=== PATIENT | female | born 1995 | race American Indian/Alaskan Native ===

== ENCOUNTER 2018-05-28 10:40 | Outpatient (CLI) | payer MEDICAID ==
--- NOTE | 2018-05-28 08:26 | Emergency Department Report ---
ED Chest Pain HPI - General Chief Complaint: Chest Pain Stated Complaint: CHEST PAIN FEELING FAINT VOMITTING Time Seen by Provider: 05/28/18 07:17 Source: patient Mode of arrival: Ambulatory Limitations: No Limitations - History of Present Illness Initial Comments: Amy is a very pleasant healthy 23-year-old female with who presents with chest and abdominal pain this morning. She has chest burning with 2 episodes of vomiting. She has diffuse abdominal pain most predominantly in the right lower quadrant. Has not had indigestion during this . Had normal food last night. [facility]. Last visit was Thursday. Recently diagnosed with gestational diabetes. Now she feels faint and weak. No vaginal bleeding. No loss of fluid. ED 08/15/2018 EGA 28 weeks 5 days Complaint: chest pain -: Gradual, This morning Onset: during rest Severity scale (0 -10): 5 Quality: other (burning) Improves With: nothing Worsens With: exertion - Related Data Allergies Allergy/AdvReac Type Severity Reaction Status Date / Time No Known Allergies Allergy Unverified 05/28/18 05:50 Heart Score - HEART Score History: Slightly suspicious EKG: Normal Age: < 45 Risk factors: No known risk factors Troponin: < normal limit HEART Score: 0 ED Review of Systems ROS: Stated complaint: CHEST PAIN FEELING FAINT VOMITTING Other details as noted in HPI Comment: All other systems reviewed and negative Constitutional: denies: fever, malaise Respiratory: denies: cough, shortness of breath Cardiovascular: chest pain ED Past Medical Hx - Past Medical History Previous Medical History?: No - Surgical History Past Surgical History?: No - Social History Smoking Status: Never Smoker Substance Use Type: None ED Physical Exam - General Limitations: No Limitations General appearance: alert, in no apparent distress - Head Head exam: Present: atraumatic, normocephalic - Eye Eye exam: Present: normal appearance - ENT ENT exam: Present: mucous membranes moist - Neck Neck exam: Present: normal inspection, full ROM - Respiratory Respiratory exam: Present: normal lung sounds bilaterally. Absent: respiratory distress, wheezes, rales, rhonchi - Cardiovascular Cardiovascular Exam: Present: regular rate, normal rhythm, normal heart sounds. Absent: systolic murmur, diastolic murmur, rubs, gallop - GI/Abdominal GI/Abdominal exam: Present: soft, distended (gravid), normal bowel sounds. Absent: tenderness, guarding, rebound - Extremities Exam Extremities exam: Present: normal inspection - Back Exam Back exam: Present: normal inspection - Neurological Exam Neurological exam: Present: alert, oriented X3 - Psychiatric Psychiatric exam: Present: normal affect, normal mood - Skin Skin exam: Present: warm, dry, intact, normal color. Absent: rash ED Course Vital Signs 05/28/18 05/28/18 05/28/18 05:45 06:49 07:00 Temperature 99.3 F Pulse Rate 84 99 H 100 H Respiratory 16 14 23 Rate Blood Pressure 123/64 115/65 Blood Pressure [Left] O2 Sat by Pulse 100 97 100 Oximetry 05/28/18 05/28/18 05/28/18 07:15 07:30 07:45 Temperature Pulse Rate 104 H 94 H 104 H Respiratory 18 23 19 Rate Blood Pressure 115/65 116/62 116/62 Blood Pressure [Left] O2 Sat by Pulse 98 99 99 Oximetry 05/28/18 05/28/18 05/28/18 07:48 08:00 08:15 Temperature Pulse Rate 102 H 112 H 108 H Respiratory 16 20 24 Rate Blood Pressure 113/61 113/61 Blood Pressure 116/62 [Left] O2 Sat by Pulse 100 100 99 Oximetry 05/28/18 05/28/18 05/28/18 08:30 08:45 09:00 Temperature Pulse Rate 108 H 114 H 107 H Respiratory 21 13 26 H Rate Blood Pressure 121/64 121/64 120/61 Blood Pressure [Left] O2 Sat by Pulse 100 100 100 Oximetry 05/28/18 05/28/18 05/28/18 09:15 09:30 09:45 Temperature Pulse Rate 120 H 110 H 119 H Respiratory 21 18 15 Rate Blood Pressure 120/61 127/63 127/63 Blood Pressure [Left] O2 Sat by Pulse 99 99 99 Oximetry ED Medical Decision Making - EKG Data EKG shows normal: sinus rhythm, axis, intervals, QRS complexes, ST-T waves Rate: tachycardia - EKG Data Interpretation: normal EKG (with the exception of tachycardia 100 bpm) - Medical Decision Making Ms. Hunt presents with abdominal pain chest pain since 3:45 AM. She did have sinus tachycardia noted on EKG. However with history of abdominal pain will need evaluation by labor and delivery to ensure that health of the baby. I do not suspect dissection or pulmonary embolism at this time. However she will need further evaluation if symptoms persist after obstetrical evaluation. She is transferred to labor and delivery. She is currently discharged from the emergency department. Our nursing staff will transport her to labor and delivery. Critical care attestation.: If time is entered above; I have spent that time in minutes in the direct care of this critically ill patient, excluding procedure time. ED Disposition Clinical Impression: Abdominal pain affecting , Chest pain Disposition: TO HOME OR SELFCARE Is pt being admited?: No Does the pt Need Aspirin: No Condition: Stable Instructions: Chest Pain (ED) Referrals: [facility] [Other] - 3-5 Days
[2018-05-28 10:00] LABS: Basophils % (Auto) 0.1 % (0.0-1.8); Eosinophils % (Auto) 0.1 % (0.0-4.3); Hematocrit 37.6 % (30.3-42.9); Hemoglobin 13.2 gm/dl (10.1-14.3); Lymphocytes # (Auto) 0.3 K/mm3 (1.2-5.4); Lymphocytes % (Auto) 3.3 % (13.4-35.0); Mean Corpuscular HGB Conc 35 % (30-34); Mean Corpuscular Volume 93 fl (79-97); Monocytes # (Auto) 0.5 K/mm3 (0.0-0.8); Monocytes % (Auto) 6.8 % (0.0-7.3); Platelet Count 248 K/mm3 (140-440); Red Blood Count 4.05 M/mm3 (3.65-5.03); Red Cell Distribution Width 12.6 % (13.2-15.2)
[2018-05-28 10:22] LABS: Alanine Aminotransferase 7 units/L (7-56); Albumin 3.6 g/dL (3.9-5); BUN/Creatinine Ratio 12; Blood Urea Nitrogen 7 mg/dL (7-17); Calcium 8.8 mg/dL (8.4-10.2); Hemolysis Index 3
[2018-05-28 10:25] LABS: Bilirubin,Direct < 0.2 mg/dL (0-0.2)
[~2018-05-28 10:40] MED LIST: NACL 0.9% 1000 ML 1,000 ML IV ONE; NACL 0.9% 1000 ML 1,000 ML ONE; PEPCID PO ONE; TYLENOL PO ONE; ZOFRAN IV ONE; ZOFRAN ODT PO ONE; ZOFRAN ONE
[2018-05-28 10:46] VITALS: BP 130/66
[2018-05-28] MEDS ORDERED: BRETHINE SUB-Q ONE (11:47)
[2018-05-28] MEDS ORDERED: LACTATED RINGERS 500 ML IV SCH (12:00)
== END 2018-05-28 12:35 | disposition home or self-care (01) ==
LOC: TRG 10:40 → EDSTATUS 10:42 → TRG 12:35
PROVIDERS: ATTEND Obstetrics & Gynecology
DX: O26.893 Other specified pregnancy related conditions, third trimester (principal); R07.9 Chest pain, unspecified; R10.84 Generalized abdominal pain; R55 Syncope and collapse; O21.2 Late vomiting of pregnancy; O24.419 Gestational diabetes mellitus in pregnancy, unspecified control; Z3A.28 28 weeks gestation of pregnancy
CPT/HCPCS: 36415; 59025; 80048; 80076; 85025; 93005; 93010; 96361; 96372; 96374; J2405; J3105; J7030; J7120; 96360; 99283; Q0162

== ENCOUNTER 2018-07-29 10:16 | Outpatient (CLI) | payer MEDICAID ==
[2018-07-29 10:43] VITALS: BP 127/78
--- NOTE | 2018-07-29 12:59 | Ultrasound Report ---
ULTRASOUND BIOPHYSICAL PROFILE: History: Decreased movement Technique: Transabdominal ultrasound with Doppler interrogation. 2 - breathing movements 2 - movements 2 - posture and tone 2 - Qualitative amniotic fluid volume 8 - TOTAL SCORE OF POSSIBLE 8 Heart Rate (bpm) 149
--- NOTE | 2018-07-29 12:59 | Ultrasound Report ---
ULTRASOUND OB LIMITED History: Decreased movement Technique: Transabdominal ultrasound with Doppler interrogation. Gestation: Single Position: Cephalic Amniotic Fluid: Normal DARRIAN = 15.9 cm Heart Rate: 156 BPM
== END 2018-07-29 13:50 | disposition home or self-care (01) ==
LOC: TRG 10:16
PROVIDERS: ATTEND Obstetrics & Gynecology
DX: O47.03 False labor before 37 completed weeks of gestation, third trimester (principal); Z3A.36 36 weeks gestation of pregnancy
CPT/HCPCS: 76815; 76819

== ENCOUNTER 2018-08-05 14:28 | Inpatient (IN) | payer MEDICAID ==
[2018-08-05 18:39] LABS: Hematocrit 36.9 % (30.3-42.9); Mean Corpuscular HGB Conc 35 % (30-34); Mean Corpuscular Volume 93 fl (79-97); Platelet Count 208 K/mm3 (140-440); Red Blood Count 3.98 M/mm3 (3.65-5.03); Red Cell Distribution Width 14.3 % (13.2-15.2)
[2018-08-05 19:00] LABS: Alanine Aminotransferase 7 units/L (7-56); Uric Acid 5.8 mg/dL (3.5-7.6)
[2018-08-05] MEDS ORDERED: BRETHINE IVP PRN (20:54)
[2018-08-05] MEDS ORDERED: BRETHINE SUB-Q PRN (20:54)
[2018-08-05] MEDS ORDERED: MINERAL OIL PO PRN (20:54)
[2018-08-05] MEDS ORDERED: SUBLIMAZE IV PRN (20:54)
[2018-08-05] MEDS ORDERED: XYLOCAINE 2% INFILTRATI ONE (20:54)
[2018-08-05] MEDS ORDERED: CERVIDIL VG ONE (20:54)
[2018-08-05] MEDS ORDERED: STADOL IV PRN (20:54)
[2018-08-05] MEDS ORDERED: PITOCin/NS 20 UNIT/1000ML DRIP 20 UNITS/1,000 ML BAG IV SCH (21:00)
[2018-08-05] MEDS ORDERED: LACTATED RINGERS 1,000 ML IV SCH (21:00)
[2018-08-05 22:19] LABS: Bilirubin,Urine NEG (Negative); Blood,Urine NEG (Negative); Color,Urine Yellow (Yellow); Mucus,Urine FEW /HPF; Protein,Urine <15 mg/dL mg/dL (Negative); Urobilinogen,Urine < 2.0 mg/dL (<2.0)
[2018-08-06] MEDS ORDERED: AMBIEN PO PRN (00:07)
--- NOTE | 2018-08-06 08:34 | History and Physical Report ---
History of Present Illness Date of examination: 08/06/18 Date of admission: 08/06/18 00:17 Chief complaint: sent from [facility] for induction of labor History of present illness: Pt is a 23 year old -[place] female DE 08/15/28 at 38w5d who presents from [facility] for induction secondary to gestational hypertension. She has no obstetric complaints. She received cervidil overnight. She has had care at [facility] since 13 wks complicated by polyhydramnios, gestational diabetes, UTI treated with Macrobid. She is GBS negative. Past History Past Medical History: no pertinent history Past Surgical History: other (wisdom teeth extraction ) Family/Genetic History: diabetes, hypertension Social history: no significant social history - Obstetrical History Expected Date of Delivery: 08/12/18 Actual Gestation: 39 Week(s) 1 Day(s) : 2 Para: 0 Hx # Term Pregnancies: 0 Number of Pregnancies: 0 Spontaneous Abortions: 0 Induced : 1 Number of Living Children: 0 Medications and Allergies Allergies Allergy/AdvReac Type Severity Reaction Status Date / Time No Known Allergies Allergy Verified 08/05/18 18:10 Home Medications Medication Instructions Recorded Confirmed Last Taken Type Vit-Fe Fumar-FA [ 1 tab PO QDAY 08/06/18 08/06/18 08/05/18 History Vitamin] Active Meds: Active Medications Butorphanol Tartrate (Stadol) 2 mg IV Q2H PRN PRN Reason: Pain , Severe (7-10) Ephedrine Sulfate (Ephedrine Sulfate) 10 mg IV Q2M PRN PRN Reason: Hypotension Fentanyl (Sublimaze) 100 mcg IV Q2H PRN PRN Reason: Labor Pain Oxytocin/Sodium Chloride (Pitocin/Ns 20 Unit/1000ml Drip) 20 units in 1,000 mls @ 125 mls/hr IV DIRECT THOMAS Lactated Ringer's (Lactated Ringers) 1,000 mls @ 125 mls/hr IV DIRECT THOMAS Mineral Oil (Mineral Oil) 30 ml PO QHS PRN PRN Reason: Constipation Terbutaline Sulfate (Brethine) 0.25 mg SUB-Q ONCE PRN PRN Reason: Hyperstimulation/Hypertonicity Terbutaline Sulfate (Brethine) 0.25 mg IVP ONCE PRN PRN Reason: Hyperstimulation/Hypertonicity Zolpidem Tartrate (Ambien) 10 mg PO QHS PRN PRN Reason: Insomnia Last Admin: 08/06/18 02:29 Dose: 10 mg Documented by: Review of Systems All systems: negative - Vital Signs Vital signs: Vital Signs Pulse BP 85 130/78 08/05/18 15:53 08/05/18 15:53 Temp Pulse Resp BP Pulse Ox 98.9 F 70 16 146/91 91 08/06/18 07:35 08/06/18 07:35 08/06/18 07:35 08/06/18 07:35 08/06/18 07:12 - Physical Exam Breasts: Positive: deferred Cardiovascular: Regular rate Lungs: Positive: Clear to auscultation Abdomen: Positive: soft (gravid ) Uterus: Positive: enlarged (gravid) Extremities: Positive: normal - Obstetrical FHR: auscultation normal Uterine Contraction Monitor Mode: External Uterine Contraction Pattern: Irregular Uterine Tone Measurement Phase: Resting Uterine Contraction Intensity: Mild Results Result Diagrams: 08/05/18 18:16 08/05/18 18:16 Abnormal lab results 08/05/18 08/05/18 08/05/18 Range/Units 18:16 18:16 21:39 MCH 33 H (28-32) pg MCHC 35 H (30-34) % POC Glucose (70-105) Lactate Dehydrogenase 216 H (91-180) units/L U Epithel Cells (Auto) 28.0 H (0-13.0) /HPF 08/05/18 Range/Units 22:01 MCH (28-32) pg MCHC (30-34) % POC Glucose 67 L (70-105) Lactate Dehydrogenase (91-180) units/L U Epithel Cells (Auto) (0-13.0) /HPF All other labs normal. Assessment and Plan A: IUP at 38w5d Gestational HTN GBS Negative P: Admit to labor and delivery Proceed with induction of labor Closely monitor clinical status
[2018-08-06] MEDS: CYTOTEC VG PRN (23:25)
[2018-08-07] MEDS: CYTOTEC VG PRN (04:01)
--- NOTE | 2018-08-07 07:21 | Progress Note ---
Assessment and Plan - Patient Problems (1) Gestational hypertension Current Visit: Yes Status: Acute Plan to address problem: continue plan of induction Subjective - Subjective Date of service: 08/07/18 Interval history: 23y/o @ 38+6 weeks undegoing induction for gestational hypertension. The patient has received cervidil and cytotec without cervical change. Cat I tracing. Continue induction. Will likely transition to pitocin, Patient reports: no new complaints Objective - Vital Signs Vital Signs: Vital Signs - 12hr 08/06/18 08/06/18 08/06/18 20:21 22:31 22:33 Temperature 98.5 F Pulse Rate 78 69 71 Respiratory 16 Rate Blood Pressure 147/81 179/98 160/94 Blood Pressure 147/81 [Left] O2 Sat by Pulse 100 Oximetry 08/06/18 08/06/18 08/06/18 22:36 22:41 22:46 Temperature Pulse Rate 89 69 88 Respiratory Rate Blood Pressure Blood Pressure [Left] O2 Sat by Pulse 100 100 99 Oximetry 08/06/18 08/06/18 08/06/18 22:51 23:09 23:21 Temperature Pulse Rate 75 78 91 H Respiratory Rate Blood Pressure Blood Pressure [Left] O2 Sat by Pulse 98 99 100 Oximetry 08/06/18 08/06/18 08/06/18 23:22 23:26 23:31 Temperature Pulse Rate 96 H 75 76 Respiratory Rate Blood Pressure 133/83 Blood Pressure [Left] O2 Sat by Pulse 99 100 Oximetry 08/06/18 08/06/18 08/06/18 23:36 23:41 23:46 Temperature Pulse Rate 75 74 72 Respiratory Rate Blood Pressure Blood Pressure [Left] O2 Sat by Pulse 98 99 98 Oximetry 08/06/18 08/06/18 08/07/18 23:51 23:56 00:01 Temperature Pulse Rate 73 83 94 H Respiratory Rate Blood Pressure Blood Pressure [Left] O2 Sat by Pulse 99 97 97 Oximetry 08/07/18 08/07/18 08/07/18 00:06 00:11 00:16 Temperature Pulse Rate 77 83 78 Respiratory Rate Blood Pressure Blood Pressure [Left] O2 Sat by Pulse 96 97 97 Oximetry 08/07/18 08/07/18 08/07/18 00:21 00:26 00:31 Temperature Pulse Rate 73 78 79 Respiratory Rate Blood Pressure Blood Pressure [Left] O2 Sat by Pulse 97 98 97 Oximetry 08/07/18 08/07/18 08/07/18 00:36 00:41 00:46 Temperature Pulse Rate 96 H 92 H 81 Respiratory Rate Blood Pressure Blood Pressure [Left] O2 Sat by Pulse 98 97 98 Oximetry 08/07/18 08/07/18 08/07/18 00:51 00:56 01:01 Temperature Pulse Rate 93 H 75 84 Respiratory Rate Blood Pressure Blood Pressure [Left] O2 Sat by Pulse 97 96 97 Oximetry 08/07/18 08/07/18 08/07/18 01:06 01:11 01:16 Temperature Pulse Rate 78 66 70 Respiratory Rate Blood Pressure Blood Pressure [Left] O2 Sat by Pulse 97 97 96 Oximetry 08/07/18 08/07/18 08/07/18 01:17 01:21 01:25 Temperature Pulse Rate 74 80 71 Respiratory Rate Blood Pressure Blood Pressure [Left] O2 Sat by Pulse 93 97 94 Oximetry 08/07/18 08/07/18 08/07/18 01:26 01:31 01:35 Temperature Pulse Rate 68 90 70 Respiratory Rate Blood Pressure Blood Pressure [Left] O2 Sat by Pulse 97 96 93 Oximetry 08/07/18 08/07/18 08/07/18 01:36 01:41 01:46 Temperature Pulse Rate 88 87 66 Respiratory Rate Blood Pressure Blood Pressure [Left] O2 Sat by Pulse 96 96 97 Oximetry 08/07/18 08/07/18 08/07/18 01:51 01:56 02:01 Temperature Pulse Rate 93 H 64 65 Respiratory Rate Blood Pressure Blood Pressure [Left] O2 Sat by Pulse 98 98 97 Oximetry 08/07/18 08/07/18 08/07/18 02:06 02:11 02:16 Temperature Pulse Rate 64 70 70 Respiratory Rate Blood Pressure Blood Pressure [Left] O2 Sat by Pulse 97 96 97 Oximetry 08/07/18 08/07/18 08/07/18 02:21 02:26 02:31 Temperature Pulse Rate 62 65 71 Respiratory Rate Blood Pressure Blood Pressure [Left] O2 Sat by Pulse 98 97 97 Oximetry 08/07/18 08/07/18 08/07/18 02:36 02:41 02:46 Temperature Pulse Rate 59 L 67 70 Respiratory Rate Blood Pressure Blood Pressure [Left] O2 Sat by Pulse 98 97 97 Oximetry 08/07/18 08/07/18 08/07/18 02:51 02:56 03:01 Temperature Pulse Rate 57 L 72 64 Respiratory Rate Blood Pressure Blood Pressure [Left] O2 Sat by Pulse 98 98 97 Oximetry 08/07/18 08/07/18 08/07/18 03:06 03:11 03:16 Temperature Pulse Rate 70 57 L 68 Respiratory Rate Blood Pressure Blood Pressure [Left] O2 Sat by Pulse 99 98 99 Oximetry 08/07/18 08/07/18 08/07/18 03:21 03:24 03:34 Temperature Pulse Rate 65 89 79 Respiratory Rate Blood Pressure Blood Pressure [Left] O2 Sat by Pulse 97 89 100 Oximetry 08/07/18 08/07/18 08/07/18 03:36 03:39 03:44 Temperature Pulse Rate 111 H 71 61 Respiratory Rate Blood Pressure Blood Pressure [Left] O2 Sat by Pulse 94 100 100 Oximetry 08/07/18 08/07/18 08/07/18 03:49 03:54 03:59 Temperature Pulse Rate 91 H 59 L 65 Respiratory Rate Blood Pressure Blood Pressure [Left] O2 Sat by Pulse 99 100 98 Oximetry 08/07/18 08/07/18 08/07/18 04:01 04:02 04:04 Temperature 98.6 F Pulse Rate 65 77 67 Respiratory 20 Rate Blood Pressure 186/105 139/87 Blood Pressure 138/87 [Left] O2 Sat by Pulse 98 Oximetry 08/07/18 08/07/18 08/07/18 04:09 04:14 04:19 Temperature Pulse Rate 62 70 58 L Respiratory Rate Blood Pressure Blood Pressure [Left] O2 Sat by Pulse 98 98 99 Oximetry 08/07/18 08/07/18 08/07/18 04:24 04:29 04:34 Temperature Pulse Rate 61 65 63 Respiratory Rate Blood Pressure Blood Pressure [Left] O2 Sat by Pulse 98 97 98 Oximetry 08/07/18 08/07/18 08/07/18 04:39 04:44 04:49 Temperature Pulse Rate 58 L 64 57 L Respiratory Rate Blood Pressure Blood Pressure [Left] O2 Sat by Pulse 97 97 98 Oximetry 08/07/18 08/07/18 08/07/18 04:54 04:59 05:04 Temperature Pulse Rate 59 L 71 62 Respiratory Rate Blood Pressure Blood Pressure [Left] O2 Sat by Pulse 97 96 97 Oximetry 08/07/18 08/07/18 08/07/18 05:09 05:14 05:19 Temperature Pulse Rate 80 91 H 78 Respiratory Rate Blood Pressure Blood Pressure [Left] O2 Sat by Pulse 98 98 98 Oximetry 08/07/18 08/07/18 08/07/18 05:23 05:24 05:29 Temperature Pulse Rate 54 L 60 62 Respiratory Rate Blood Pressure 142/75 Blood Pressure [Left] O2 Sat by Pulse 98 98 Oximetry 08/07/18 08/07/18 08/07/18 05:34 05:39 05:44 Temperature Pulse Rate 58 L 69 63 Respiratory Rate Blood Pressure Blood Pressure [Left] O2 Sat by Pulse 99 98 98 Oximetry 08/07/18 08/07/18 08/07/18 05:49 05:54 05:59 Temperature Pulse Rate 61 59 L 60 Respiratory Rate Blood Pressure Blood Pressure [Left] O2 Sat by Pulse 98 99 98 Oximetry 08/07/18 08/07/18 08/07/18 06:04 06:09 06:14 Temperature Pulse Rate 60 66 58 L Respiratory Rate Blood Pressure Blood Pressure [Left] O2 Sat by Pulse 99 98 97 Oximetry 08/07/18 08/07/18 08/07/18 06:19 06:24 06:29 Temperature Pulse Rate 65 63 65 Respiratory Rate Blood Pressure Blood Pressure [Left] O2 Sat by Pulse 97 97 98 Oximetry 08/07/18 08/07/18 08/07/18 06:32 06:37 06:40 Temperature Pulse Rate 79 90 90 Respiratory Rate Blood Pressure Blood Pressure [Left] O2 Sat by Pulse 90 75 L 76 L Oximetry 08/07/18 08/07/18 08/07/18 06:42 06:47 06:52 Temperature Pulse Rate 65 61 58 L Respiratory Rate Blood Pressure Blood Pressure [Left] O2 Sat by Pulse 98 98 99 Oximetry 08/07/18 08/07/18 08/07/18 06:57 07:02 07:07 Temperature Pulse Rate 74 59 L 60 Respiratory Rate Blood Pressure Blood Pressure [Left] O2 Sat by Pulse 92 99 99 Oximetry 08/07/18 07:09 Temperature Pulse Rate 75 Respiratory Rate Blood Pressure Blood Pressure [Left] O2 Sat by Pulse 93 Oximetry - Labs Labs: Abnormal Labs 08/05/18 08/05/18 08/05/18 18:16 18:16 21:39 MCH 33 H MCHC 35 H POC Glucose Lactate Dehydrogenase 216 H U Epithel Cells (Auto) 28.0 H 08/05/18 08/06/18 22:01 15:15 MCH MCHC POC Glucose 67 L 137 H Lactate Dehydrogenase U Epithel Cells (Auto) Laboratory Results - last 24 hr 08/05/18 08/06/18 08/06/18 21:39 12:07 15:15 POC Glucose 80 137 H RPR Nonreactive 08/07/18 07:19 POC Glucose 84 RPR
[2018-08-07] MEDS ORDERED: PITOCin/NS 30 UNIT/500ML 30 UNITS/500 ML BAG IV SCH (08:00)
[2018-08-07] MEDS ORDERED: APRESOLINE IV PRN (15:10)
[2018-08-07 20:58] LABS: Hematocrit 38.6 % (30.3-42.9); Hemoglobin 13.8 gm/dl (10.1-14.3); Mean Corpuscular HGB Conc 36 % (30-34); Mean Corpuscular Volume 93 fl (79-97); Platelet Count 228 K/mm3 (140-440); Red Blood Count 4.17 M/mm3 (3.65-5.03); Red Cell Distribution Width 14.2 % (13.2-15.2)
[2018-08-07] MEDS ORDERED: ZOFRAN IV PRN (21:04)
[2018-08-07] MEDS ORDERED: NARCAN 0.4 MG/1 ML IV PRN ×2 (21:04→21:11)
[2018-08-07] MEDS ORDERED: PHENERGAN PR PRN (21:04)
[2018-08-07] MEDS ORDERED: PHENERGAN PO PRN (21:04)
[2018-08-07] MEDS ORDERED: BENADRYL IV PRN (21:04)
[2018-08-07] MEDS ORDERED: DILAUDID IV PRN ×2 (21:04)
--- NOTE | 2018-08-07 21:06 | Anesthesia Consultation ---
Anesthesia Consult and Med Hx Date of service: 08/07/18 - Airway Anesthetic Teeth Evaluation: Good ROM Head & Neck: Adequate Mental/Hyoid Distance: Adequate Mallampati Class: Class II Intubation Access Assessment: Good - Pulmonary Exam CTA: Yes - Cardiac Exam Cardiac Exam: RRR - Pre-Operative Health Status ASA Pre-Surgery Classification: ASA2 Proposed Anesthetic Plan: Spinal - Pulmonary Hx Smoking: No Hx Asthma: No Hx Respiratory Symptoms: No SOB: No COPD: No Home Oxygen Therapy: No Hx Pneumonia: No Hx Sleep Apnea: No - Cardiovascular System Hx Hypertension: No Hx Coronary Artery Disease: No Hx Heart Attack/AMI: No Hx Angina: No Hx Percutaneous Transluminal Coronary Angioplasty (PTCA): No Hx Cardia Arrhythmia: No Hx Pacemaker: No Hx Internal Defibrillator: No Hx Valvular Heart Disease: No Hx Heart Murmur: No Hx Peripheral Vascular Disease: No - Central Nervous System Hx Seizures: No Hx Psychiatric Problems: No - Gastrointestinal Hx Ulcer: No Hx Gastroesophageal Reflux Disease: Yes - Endocrine Hx Renal Disease: No Hx End Stage Renal Disease: No Hx Cirrhosis: No Hx Liver Disease: No Hx Insulin Dependent Diabetes: No Hx Non-Insulin Dependent Diabetes: No Hx Thyroid Disease: No Hx Hypothyroidism: No Hx Hyperthyroidism: No - Hematic Hx Anemia: No Hx Sickle Cell Disease: No - Other Systems Hx Alcohol Use: No Hx Substance Use: No Hx Cancer: No Hx Obesity: No
--- NOTE | 2018-08-07 21:07 | Post Anesthesia Evaluation ---
- Post Anesthesia Evaluation Patient Participated: Yes Airway Patent: Yes Stable Respiratory Function: Yes Nausea/Vomiting: No Temp > 96.8F: Yes Pain Manageable: Yes Adequeate Hydration: Yes Anesthesia Complications: No Block Receding Appropriately: Yes Patient on Ventilator: No
--- NOTE | 2018-08-07 21:07 | Anesthesia Day of Surgery ---
Anesthesia Day of Surgery - Day of Surgery Patient Examined: Yes Patient H&P Reviewed: Yes Patient is NPO: Yes Beta Blockers: No Cardiac Clearance: No Pulmonary Clearance: No Herbert's Test: N/A
--- NOTE | 2018-08-07 21:09 | Event Note ---
Date: 08/07/18 Patient has undergone induction with cervidil, cytotec and pitocin without cervical change. tracing remains reassuring. Options discussed with patient who has elected to proceed with a primary delivery for failed induction.
--- NOTE | 2018-08-07 21:10 | Procedure Note ---
OB Delivery Note - Delivery Date of Delivery: 08/07/18 Surgeon: CARLOS TESFAYE Estimated blood loss: other (800ml) - Section Preop diagnosis: other (failed induction) Postop diagnosis: same section procedure: section, primary low transverse Disposition: PACU Complications: none - A at 1 minute: 8 at 5 minutes: 9 Infant Gender: Male (weight 7lbs 1oz)
[2018-08-07] MEDS ORDERED: MORPHINE IV PRN (21:11)
[2018-08-07] MEDS ORDERED: TORADOL IV PRN (21:11)
[2018-08-07] MEDS ORDERED: LANSINOH TP PRN (21:11)
[2018-08-07] MEDS ORDERED: TYLENOL PO PRN (21:11)
[2018-08-07] MEDS ORDERED: TUCKS PAD TP PRN (21:11)
[2018-08-07] MEDS ORDERED: REGLAN ONE (21:15)
[2018-08-07] MEDS ORDERED: BICITRA ONE (21:15)
--- NOTE | 2018-08-07 21:15 | Operative Report ---
Operative Report Operative Report: Date of surgery: 08/07/2018 Preoperative diagnosis: at 39+0 weeks; gestational hypertension; failed induction Postoperative diagnosis: Same as above Procedure: Primary low transverse delivery Surgeon: Yanely Rizo M.D. Anesthesia: Regional Estimated blood loss: 800 mL IV fluids 900 mL Urine output 100 mL Findings: Liveborn male infant with Apgars of 8 and 9 weight 7 lbs. 1 oz. Indications: 23-year-old 38+6 weeks who was admitted for induction of labor secondary to gestational hypertension. The patient received multiple modalities for induction of labor without cervical change. Procedure: The patient was taken to the operating room and given regional anesthesia without complication. She was prepped and draped in a normal sterile fashion. A Pfannenstiel skin incision was made down to layer the fascia which was nicked in the midline extended laterally with the Bovie cautery. The superior aspect of the rectus fascia was grasped with Gay clamps x2 and the rectus muscles off sharply. This was done in inferior fashion as well. The rectus muscle midline and peritoneum entered bluntly. An Johnny retractor was then inserted. A bladder blade was placed. The vesicouterine peritoneum was then entered sharply with Metzenbaum scissors. A bladder flap was created digitally. A low transverse uterine incision was then made and extended digitally. There was clear fluid upon entry into the uterine cavity. Experience difficulty liver and the head through the incision. A Kiwi vacuum was applied however suction was an adequate secondary to the blood in the field. The skin incision was then extended with the scalpel. The head was delivered through the incision with fundal pressure. The cord was clamped and cut x2 and was passed off to pediatrics. The placenta was then manually extracted. The uterus was then exteriorized and cleared of clots and debris. The uterine incision was then closed in a running locked fashion with 0 Vicryl additional imbricating stitch was applied for 2 layer closure. The serosa was then reapproximated with 3-0 Vicryl. The posterior cul-de-sac was then copiously irrigated. The uterus was replaced back into the abdomen and pelvis were the gutters were then irrigated. The Johnny retractor was then removed. The peritoneum was then reapproximated with 3-0 Vicryl incorporating the rectus muscle. The fascia was then closed with 0 Vicryl in a running fashion. The skin was then reapproximated with 3-0 Monocryl on a Ovi needle subcuticular fashion. Steri-Strips to place across the incision and a Crede procedures performed at the end of the surgery. A pressure dressing was applied to the incision. The surgery productive of a liveborn male with Apgars of 8 and 9 weight 7 lbs. 1 oz. The patient was taken to the recovery room in stable condition. All sponge laps and needle counts correct x2.
[2018-08-07] MEDS ORDERED: PEPCID IV ONE (21:16)
[2018-08-07] MEDS ORDERED: WATER FOR IRRIG STERILE IR ONE (21:50)
[2018-08-07] MEDS ORDERED: NACL 0.9% IR ONE (21:50)
[2018-08-07] MEDS ORDERED: PEPCID IV SCH (22:00)
[2018-08-07] MEDS ORDERED: PITOCin/NS 20 UNIT/1000ML DRIP 20 UNITS/1,000 ML BAG IV SCH (22:00)
[2018-08-07] MEDS ORDERED: D5LR 1,000 ML IV SCH (22:00)
[2018-08-07] MEDS ORDERED: SODIUM CHLORIDE FLUSH SYRINGE 10 ML IV NR ×2 (22:00)
[2018-08-08] MEDS ORDERED: BICITRA PO ONE (01:41)
[2018-08-08] MEDS ORDERED: REGLAN IV NR (02:00)
[2018-08-08] MEDS: PERCOCET 5/325 PO PRN ×2 (04:41→11:14)
[2018-08-08] MEDS: IBUPROFEN PO PRN ×3 (04:42→22:51)
[2018-08-08 09:45] LABS: Hematocrit 32.8 % (30.3-42.9); Hemoglobin 11.5 gm/dl (10.1-14.3)
--- NOTE | 2018-08-08 11:29 | Progress Note ---
Assessment and Plan - Patient Problems (1) Gestational hypertension Current Visit: Yes Status: Acute Plan to address problem: will initiate anti-hypertensive routine postop care Subjective - Subjective Date of service: 08/08/18 Interval history: POD#1 s/p primary for failed induction. The patient is having labile blood pressures. Tolerating diet. Bliss has not been removed yet. Patient reports: appetite normal, flatus : doing well Objective - Vital Signs Latest vital signs: Vital Signs Temp Pulse Resp BP BP Pulse Ox 08/08/18 07:52 98.6 F 100 H 16 152/81 97 08/08/18 00:30 98.4 F 84 16 155/88 08/08/18 00:00 99.0 F 80 27 H 136/70 98 08/07/18 23:50 76 21 129/69 97 08/07/18 23:35 95 H 22 148/80 95 08/07/18 23:20 101 H 25 H 135/84 97 08/07/18 23:05 78 21 122/65 97 08/07/18 23:00 105 H 18 137/62 99 08/07/18 22:54 98.1 F 111 H 18 142/74 97 08/07/18 21:22 96 H 180/94 08/07/18 21:19 78 99 08/07/18 21:14 74 99 08/07/18 21:10 80 139/103 08/07/18 21:09 79 99 08/07/18 21:08 98.8 F 82 18 139/108 99 08/07/18 21:04 74 99 08/07/18 20:59 80 99 08/07/18 20:54 69 99 08/07/18 20:49 70 99 08/07/18 20:44 77 99 08/07/18 20:39 77 99 08/07/18 20:34 72 99 08/07/18 20:29 64 99 08/07/18 20:24 68 100 08/07/18 20:21 83 161/96 08/07/18 20:19 90 99 08/07/18 20:14 82 100 08/07/18 20:09 95 H 100 08/07/18 19:52 76 189/100 08/07/18 19:47 71 99 08/07/18 19:42 75 99 08/07/18 19:37 73 100 08/07/18 19:32 70 100 08/07/18 19:27 77 100 08/07/18 19:22 85 99 08/07/18 19:21 77 155/91 08/07/18 19:17 87 98 08/07/18 19:12 89 99 08/07/18 19:07 108 H 99 08/07/18 19:02 79 100 08/07/18 18:57 86 99 08/07/18 18:52 75 99 08/07/18 18:50 71 160/84 08/07/18 18:47 77 99 08/07/18 18:42 79 98 08/07/18 18:37 69 99 08/07/18 18:32 79 99 08/07/18 18:27 75 100 08/07/18 18:26 70 165/95 08/07/18 18:22 71 99 08/07/18 18:21 76 156/93 08/07/18 18:17 78 99 08/07/18 18:12 72 99 08/07/18 18:07 79 100 08/07/18 18:02 112 H 96 08/07/18 17:51 75 161/92 08/07/18 17:49 81 99 08/07/18 17:44 73 99 08/07/18 17:39 88 99 08/07/18 17:34 72 99 08/07/18 17:29 80 99 08/07/18 17:24 80 98 08/07/18 17:22 75 147/93 08/07/18 17:19 91 H 99 08/07/18 17:14 78 99 08/07/18 17:09 75 99 08/07/18 17:04 93 H 98 08/07/18 16:59 79 99 08/07/18 16:54 83 99 08/07/18 16:49 93 H 99 08/07/18 16:44 95 H 100 08/07/18 16:42 82 140/84 08/07/18 16:39 85 100 08/07/18 16:34 90 100 08/07/18 16:30 98.6 F 18 08/07/18 16:29 88 135/77 100 08/07/18 16:24 90 100 08/07/18 16:19 91 H 100 08/07/18 16:14 95 H 100 08/07/18 16:12 86 145/86 08/07/18 16:09 93 H 100 08/07/18 16:04 99 H 100 08/07/18 15:59 101 H 100 08/07/18 15:57 88 139/83 08/07/18 15:54 88 100 08/07/18 15:49 99 H 100 08/07/18 15:44 84 100 08/07/18 15:39 85 100 08/07/18 15:31 66 191/106 08/07/18 15:29 61 98 08/07/18 15:24 69 98 08/07/18 15:23 62 168/95 08/07/18 15:19 65 99 08/07/18 15:14 60 99 08/07/18 15:09 71 99 08/07/18 15:04 67 99 08/07/18 14:59 67 99 08/07/18 14:55 61 191/106 08/07/18 14:54 64 99 08/07/18 14:49 73 98 08/07/18 14:44 65 99 08/07/18 14:39 68 98 08/07/18 14:34 59 L 99 08/07/18 14:29 66 97 08/07/18 14:24 66 99 08/07/18 14:22 71 142/85 08/07/18 14:19 65 99 08/07/18 14:16 65 179/95 08/07/18 14:14 73 97 08/07/18 14:09 77 99 08/07/18 14:04 63 99 08/07/18 13:59 61 98 08/07/18 13:54 80 98 08/07/18 13:49 64 100 08/07/18 13:44 65 99 08/07/18 13:39 66 99 08/07/18 13:34 88 99 08/07/18 13:24 70 97 08/07/18 13:19 78 98 08/07/18 13:14 65 97 08/07/18 13:09 62 97 08/07/18 13:04 61 98 08/07/18 13:03 79 93 08/07/18 12:59 58 L 98 08/07/18 12:54 65 97 08/07/18 12:50 98.9 F 18 08/07/18 12:49 63 98 08/07/18 12:46 61 170/95 08/07/18 12:44 71 97 08/07/18 12:39 65 97 08/07/18 12:34 63 98 08/07/18 12:29 62 98 08/07/18 12:24 93 H 98 08/07/18 12:13 63 99 08/07/18 12:08 71 97 08/07/18 12:03 66 98 08/07/18 11:58 68 99 08/07/18 11:53 62 99 08/07/18 11:48 61 99 08/07/18 11:43 62 98 08/07/18 11:38 69 99 08/07/18 11:33 64 98 08/07/18 11:28 61 99 Intake and Output 08/07/18 08/08/18 08/08/18 22:59 06:59 14:59 Intake Total 1318.667 240 240 Output Total 200 200 Balance 1118.667 240 40 Intake: IV 1318.667 PITOCin/NS 30 UNIT/500ML 18.667 30 units In 500 ml @ 1 MILLIUNITS/MIN 1 mls/hr IV TITR THOMAS Rx#:[id number] Oral 240 240 Output: Urine 200 200 Uretheral (Bliss) 100 Void 200 Other: Total, Intake Amount 240 240 Total, Output Amount 200 Voiding Method Toilet # Voids 3 Void 3 # Bowel Movements 0 Estimated Blood Loss 800 - Exam Abdomen: Present: normal appearance Uterus: Present: normal, firm Incision: Present: dressed - Labs Labs: Abnormal lab results 08/07/18 08/07/18 Range/Units 20:50 21:10 MCH 33 H (28-32) pg MCHC 36 H (30-34) % POC Glucose 67 L (70-105)
[2018-08-08] MEDS: PROCARDIA XL PO SCH (12:17)
--- NOTE | 2018-08-09 08:01 | Discharge Summary ---
Providers - Providers Date of Admission: 08/06/18 00:17 Date of discharge: 08/09/18 Attending physician: DALIA CARRASQUILLO MD Primary care physician: RACHEL RIVERA Hospitalization Reason for admission: induction of labor, other (Gestational HTN ) Delivery: Procedure: section, primary low transverse Procedure details: Please see operative report. Incision: intact Other procedures: none complications: none Discharge diagnosis: IUP at term delivered baby: male Hospital course: The patient was admitted for induction of labor secondary to gestational hypertension at 30 weeks. Edgardo underwent a primary low transverse section which she tolerated well. Her postoperative course was uncomfortable. She met discharge criteria on postoperative day #2. She should follow up in 1 week for a blood pressure check. Condition at discharge: Stable Disposition: DC-01 TO HOME OR SELFCARE - Discharge Diagnoses (1) S/P section Status: Acute (2) Term of male Status: Acute (3) Gestational hypertension Status: Acute Qualifiers: Trimester: third trimester Qualified Code(s): O13.3 - Gestational [-induced] hypertension without significant proteinuria, third trimester Plan - Discharge Medications Prescriptions: Labetalol [Labetalol 200mg TAB] 200 mg PO BID #60 tablet Ibuprofen [Motrin 800 MG tab] 800 mg PO Q8HR PRN #30 tablet PRN Reason: Pain, Moderate (4-6) oxyCODONE /ACETAMINOPHEN [Percocet 5/325] 1 tab PO Q6HR PRN #40 tablet PRN Reason: Pain - Provider Discharge Summary Activity: routine, no sex for 6 weeks, no heavy lifting 4 weeks, no strenuous exercise Diet: routine Instructions: routine Additional instructions: [] Smoking cessation referral if applicable(refer to patient education folder for contact #) [] Refer to [facility] Booklet Call your doctor immediately for: * Fever > 100.5 * Heavy vaginal bleeding ( >1 pad per hour) * Severe persistent headache * Shortness of breath * Reddened, hot, painful area to leg or breast * Drainage or odor from incision. * Keep incision clean and dry at all times and follow doctor's instructions regarding bathing/showering - Follow up plan Follow up: RACHEL RIVERA MD [Primary Care Provider] - 7 Days (Please schedule an appt in 1 week for a blood pressure check. Please schedule your son's circumcision before he is one month old. )
--- NOTE | 2018-08-09 08:01 | Progress Note ---
Assessment and Plan A: POD#2 s/p primary section at term Pt requesting discharge home P: Routine postop care Discharge home with follow up in 2 wks Subjective - Subjective Date of service: 08/09/18 Principal diagnosis: POD#2 s/p primary at term Interval history: Pt without complaints. She is requesting hospital discharge. Plus flatus. no bowel movement.ambulating well. Voiding without difficulty. Decreasing lochia. Patient reports: appetite normal, voiding normally, pain well controlled, flatus, ambulating normally, no bowel movement : doing well Objective - Vital Signs Latest vital signs: Vital Signs Temp Pulse Resp BP Pulse Ox 08/08/18 23:52 98.5 F 99 H 20 140/91 98 08/08/18 22:51 18 08/08/18 17:21 98.9 F 95 H 20 149/94 98 08/08/18 12:18 98.2 F 86 20 157/91 97 Intake and Output 08/08/18 08/09/18 08/09/18 22:59 06:59 14:59 Intake Total 240 240 Output Total 350 Balance -110 240 Intake: Oral 240 240 Output: Urine 350 Void 350 Other: Total, Intake Amount 240 240 Total, Output Amount 350 # Voids Void 1 1 - Exam Breasts: Present: deferred Cardiovascular: Present: Regular rate Lungs: Present: Clear to auscultation Abdomen: Present: soft, normal bowel sounds Uterus: Present: fundal height below umbilicus Extremities: Present: edema (trace) Incision: Present: intact (with steristrips )
[2018-08-09] MEDS: MILK OF MAGNESIA PO SCH ×2 (08:12→18:57)
[2018-08-09] MEDS: PROCARDIA XL PO SCH (08:13)
[2018-08-09] MEDS: PERCOCET 5/325 PO PRN ×2 (08:13→19:04)
[2018-08-09] MEDS: IBUPROFEN PO PRN ×2 (13:10→19:02)
[2018-08-10] MEDS: MILK OF MAGNESIA PO SCH ×3 (00:39→11:19)
[2018-08-10] MEDS: PERCOCET 5/325 PO PRN (00:40)
[2018-08-10] MEDS: IBUPROFEN PO PRN ×2 (00:40→06:38)
[2018-08-10] MEDS: PROCARDIA XL PO SCH (11:19)
[2018-08-10 13:59] VITALS: BP 137/85
== END 2018-08-10 14:00 | disposition home or self-care (01) | DRG 766 ==
LOC: TRG 14:28 → LD 08-06 00:17 → OB 08-08 00:45
PROVIDERS: ADMIT Obstetrics & Gynecology; ATTEND Obstetrics & Gynecology
PROC: 10D00Z1 Extraction of Products of Conception, Low, Open Approach (ICD-10-PCS; principal; 2018-08-07)
PROC: 3E0P7VZ Introduction of Hormone into Female Reproductive, Via Natural or Artificial Opening (ICD-10-PCS; 2018-08-07)
PROC: 3E033VJ Introduction of Other Hormone into Peripheral Vein, Percutaneous Approach (ICD-10-PCS; 2018-08-07)
DX: O13.4 Gestational [pregnancy-induced] hypertension without significant proteinuria, complicating childbirth (principal); O61.9 Failed induction of labor, unspecified; O99.62 Diseases of the digestive system complicating childbirth; K21.9 Gastro-esophageal reflux disease without esophagitis; Z37.0 Single live birth; Z3A.38 38 weeks gestation of pregnancy
CPT/HCPCS: 36415; 59200; 81001; 82565; 82962; 83615; 84450; 84460; 84550; 85014; 85018; 85027; 86592; 86850; 86900; 86901; G0378; J0360; J1885; J2270; J2590; J2765; J7120

== ENCOUNTER 2021-03-08 11:14 | Emergency (ER) | payer SELFPAY ==
--- NOTE | 2021-03-08 12:14 | Emergency Department Report ---
Minor Respiratory - HPI Chief Complaint: Upper Respiratory Infection Stated Complaint: FLU LIKE SYMPTOMS Time Seen by Provider: 03/08/21 12:10 Duration: 1 Day Severity: mild Minor Respiratory: Yes Able to Tolerate Fluids, Yes Cough, Yes Fever, No Rhinorrhea, No Sore Throat, No Ear Pain, No Sick Contacts, No Hemoptysis, No Chest Pain, No Shortness of Breath Other History: 26-year-old -Swedish female presents to the emergency room complaining of chills headache body aches cough scratchy throat since yesterday. Patient is unvaccinated for Covid and has not recently been tested. She states she is able to drink. She has been taken [id number] TheraFlu cold and flu last dose was last night. Patient states she is been taking Tylenol last dose last night. She denies any chest pain but reports she gets short of breath just when she coughs. She denies any past medical history currently takes no meds on a daily basis and has no known drug allergies. ED Review of Systems ROS: Stated complaint: FLU LIKE SYMPTOMS Other details as noted in HPI Comment: All other systems reviewed and negative ED Past Medical Hx - Past Medical History Previous Medical History?: No Hx Hypertension: No Hx Heart Attack/AMI: No Hx Congestive Heart Failure: No Hx Diabetes: No Hx Deep Vein Thrombosis: No Hx Liver Disease: No Hx Renal Disease: No Hx Sickle Cell Disease: No Hx Seizures: No Hx Asthma: No Hx COPD: No Hx HIV: No - Surgical History Hx Pacemaker: No Hx Internal Defibrillator: No - Social History Smoking Status: Never Smoker - Medications Home Medications: Home Medications Medication Instructions Recorded Confirmed Last Taken Type Vit-Fe Fumar-FA [ 1 tab PO QDAY 08/06/18 08/06/18 08/05/18 History Vitamin] labetaloL [Labetalol 200mg TAB] 200 mg PO BID #60 tablet 08/09/18 Unknown Rx oxyCODONE /ACETAMINOPHEN [Percocet 1 tab PO Q6HR PRN #40 tablet 08/09/18 Unknown Rx 5/325] Ibuprofen [Motrin 800 MG tab] 800 mg PO Q8HR PRN #30 tablet 03/08/21 Unknown Rx Minor Respiratory Exam - Exam General: Vital signs noted. No distress. Alert and acting appropriately. HEENT: Yes Moist Mucous Membranes, No Pharyngeal Erythema, No Pharyngeal Exudates, No Rhinorrhea, No Conjuctival Injection, No Frontal Tenderness, No Maxillary Tenderness Ear: Neither TM Bulge, Neither TM Erythema, Neither EAC Pain, Neither EAC Discharge Neck: Yes Supple, No Adenopathy Lungs: Yes Good Air Exchange, No Wheezes, No Ronchi, No Stridor, No Cough, No Labored Respirations, No Retractions, No Use of Accessory Muscles, No Other Abnormal Lung Sounds Heart: Yes Regular, No Murmur Abdomen: Yes Normal Bowel Sounds, No Tenderness, No Peritoneal Signs Skin: No Rash, No Edema Neurologic: Alert and oriented, no deficits. Musculoskeletal: Unremarkable. ED Course Vital Signs 03/08/21 11:49 Temperature 102.5 F H Pulse Rate 121 H Respiratory 16 Rate Blood Pressure 124/69 O2 Sat by Pulse 100 Oximetry ED Medical Decision Making - Medical Decision Making 26-year-old -Swedish female presents to the emergency room complaining of chills headache body aches cough scratchy throat since yesterday. Patient is unvaccinated for Covid and has not recently been tested. She states she is able to drink. She has been taken [id number] TheraFlu cold and flu last dose was last night. Patient states she is been taking Tylenol last dose last night. She denies any chest pain but reports she gets short of breath just when she coughs. She denies any past medical history currently takes no meds on a daily basis and has no known drug allergies. Unvaccinated patient with Covid-like symptoms. Discussed with patient to increase your fluids take Tylenol ibuprofen get Covid tested and quarantine for the next 5 days. Discussed with patient she can take [id number] cough medication such as Robitussin or Mucinex. Critical care attestation.: If time is entered above; I have spent that time in minutes in the direct care of this critically ill patient, excluding procedure time. ED Disposition Clinical Impression: Suspected COVID-19 virus infection, Fever Disposition: HOME / SELF CARE / HOMELESS Is pt being admited?: No Does the pt Need Aspirin: No Condition: Stable Instructions: COVID-19 Frequently Asked Questions, COVID-19: How to Protect Yourself and Others - [facility], Prevent the Spread of COVID-19 if You Are Sick - [facility] Additional Instructions: Your symptoms appear most consistent with a nonspecific viral syndrome. However, given this current pandemic, COVID-19 is in the differential of possibilities. I do recommend repeat outpatient Covid 19 testing. In the meantime, isolate/quarantine yourself and stay away from anyone who is elderly, immunocompromised or chronically ill. You can use ibuprofen every 6-8 hours and Tylenol every 4-8 hours, using the dosing on the back of the bottle, as needed for any fever or body aches. Return to the emergency department with any worsening of your symptoms, development of chest pain or shortness of breath, or with any acute distress. Prescriptions: Ibuprofen [Motrin 800 MG tab] 800 mg PO Q8HR PRN #30 tablet PRN Reason: Pain, Moderate (4-6) Referrals: Your, primary care provider [Other] - 3-5 Days Forms: Work/School Release Form(ED) Time of Disposition: 12:15
[2021-03-08 12:16] VITALS: BP 138/79
== END 2021-03-08 13:28 | disposition home or self-care (01) ==
LOC: ED 11:14
DX: Z20.822 Contact with and (suspected) exposure to COVID-19 (principal); R50.9 Fever, unspecified
CPT/HCPCS: 99282